=== PATIENT | female | born 1950 | race Caucasian/White ===

== ENCOUNTER → 2020-07-29 | Outpatient (CLI) | payer MEDICARE, OTHER ==
[~2020-07-29] MED LIST: ANASTROZOLE1 MG PO; IBUPROFEN800 MG PO; LISINOPRIL20 MG PO; PERCOCET 5/325 T1 EA PO; PREDNISONE 10 M10 MG PO
== END ==
LOC: US 13:51
DX: C50.211 Malignant neoplasm of upper-inner quadrant of right female breast (principal)
CPT/HCPCS: 76641-RT

== ENCOUNTER → 2020-09-14 | Outpatient (CLI) | payer MEDICARE, OTHER ==
[2020-09-14 11:29] LABS: BUN/CREATININE RATIO 16 (0-10)
== END ==
LOC: OPSV2 10:00
PROVIDERS: Surgery
DX: Z01.818 Encounter for other preprocedural examination (principal); R94.31 Abnormal electrocardiogram [ECG] [EKG]
CPT/HCPCS: 80048; 93005

== ENCOUNTER → 2020-09-15 | Day surgery (SDC) | payer MEDICARE, OTHER | END | disposition home or self-care (01) | LOC: OR 06:15 | DX: C50.911 Malignant neoplasm of unspecified site of right female breast (principal); Z20.822 Contact with and (suspected) exposure to COVID-19; I10 Essential (primary) hypertension; Z79.811 Long term (current) use of aromatase inhibitors; Z88.2 Allergy status to sulfonamides | CPT/HCPCS: 88341; 88342; A9520; J0690; J1100; J2001; J2250; J2405; J2704; J2765; J3010; J7030; J7120; Q9968 ==

== ENCOUNTER 2020-11-11 07:38 | Inpatient (IN) | payer MEDICARE, OTHER ==
[~2020-11-11] VITALS: Ht 162.6 cm; Wt 84.8 kg
[2020-11-11 09:18] LABS: HEMOGLOBIN 12.6 gm/dl (12.3-15.3); RED BLOOD COUNT 3.97 M/UL (4.00-5.10); WHITE BLOOD COUNT 9.7 K/UL (4.5-11.0)
[2020-11-11 09:59] LABS: BUN/CREATININE RATIO 28 (0-10)
[2020-11-11] MEDS ORDERED: ZANAFLEX 4 MG TA4 MG PO (15:49)
[2020-11-12 03:02] LABS: HEMOGLOBIN 11.6 gm/dl (12.3-15.3); RED BLOOD COUNT 3.67 M/UL (4.00-5.10)
[2020-11-12 03:22] LABS: WHITE BLOOD COUNT 6.9 K/UL (4.5-11.0)
[2020-11-12 03:27] LABS: BUN/CREATININE RATIO 26 (0-10)
[2020-11-12 08:36] LABS: ACINETOBACTER BAUMANNII Not Detected (Negative); CANDIDA ALBICANS Not Detected (Negative); CANDIDA KRUSEI Not Detected (Negative); CANDIDA TROPICALIS Not Detected (Negative); ENTEROCOCCUS Not Detected (Negative); ESCHERICHIA COLI Not Detected (Negative); HAEMOPHILUS INFLUENZAE Not Detected (Negative); KLEBSIELLA OXYTOCA Not Detected (Negative); KLEBSIELLA PNEUMONIAE Not Detected (Negative); KPC-CARBAPENEM-RESISTANCE GENE Not Detected (Negative); PROTEUS Not Detected (Negative); PSEUDOMONAS AERUGINOSA Not Detected (Negative); SERRATIA MARCESANS Not Detected (Negative); STAPHYLOCOCCUS AUREUS Not Detected (Negative); STREP AGALACTIAE (GROUP B) Not Detected (Negative); STREP PYOGENES (GROUP A) Not Detected (Negative); STREPTOCOCCUS Not Detected (Negative); mecA (METHICILLIN RESIST GENE Not Detected (Negative); vanA/B (VANCOMYCIN RESIST GENE Not Detected (Negative)
[2020-11-12 09:51] LABS: STAPHYLOCOCCUS DETECTED (Negative)
[2020-11-12 15:31] LABS: BUN/CREATININE RATIO 36 (0-10)
[2020-11-12 22:41] LABS: ADENOVIRUS F 40/41 Not Detected (Negative); ASTROVIRUS Not Detected (Negative); CAMPYLOBACTER Not Detected (Negative); CRYPTOSPORIDIUM Not Detected (Negative); E.COLI 0157 Not Detected (Negative); ENTAMOEBA HISTOLYTICA Not Detected (Negative); ENTEROAGGREGATIVE E.COLI (EAEC Not Detected (Negative); ENTEROPATHOGENIC E.COLI (EPEC) Not Detected (Negative); ENTEROTOXIGENIC E.COLI (ETEC) Not Detected (Negative); GIARDIA LAMBLIA Not Detected (Negative); NOROVIRUS GI/GII Not Detected (Negative); PLESIOMONAS SHIGELLOIDES Not Detected (Negative); ROTOVIRUS A Not Detected (Negative); SALMONELLA Not Detected (Negative); SAPOVIRUS Not Detected (Negative); SHIG/ENTEROINVAS.ECOLI (EIEC) Not Detected (Negative); SHIGA-LIK TOX.PRO.E.COLI (STEC Not Detected (Negative); VIBRIO Not Detected (Negative); VIBRIO CHOLERAE Not Detected (Negative); YERSINIA ENTEROCOLITICA Not Detected (Negative)
[2020-11-13 07:04] LABS: HEMOGLOBIN 11.3 gm/dl (12.3-15.3); RED BLOOD COUNT 3.74 M/UL (4.00-5.10)
[2020-11-13 07:09] LABS: WHITE BLOOD COUNT 15.7 K/UL (4.5-11.0)
[2020-11-13 08:22] LABS: BUN/CREATININE RATIO 39 (0-10)
[2020-11-13 08:24] LABS: CLOSTRIDIUM DIFFICILE TOX A/B DETECTED (Negative)
--- NOTE | 2020-11-14 02:44 | NUR ---
TYLENOL DOCUMENTED TWICE, ONLY 650MG GIVEN AND ONLY ONE TIME, ATEMPTED TO UNDO DOCUMENTATION BUT UNABLE TO
[2020-11-14 06:40] LABS: HEMOGLOBIN 11.6 gm/dl (12.3-15.3); RED BLOOD COUNT 3.65 M/UL (4.00-5.10)
[2020-11-14 06:41] LABS: WHITE BLOOD COUNT 10.9 K/UL (4.5-11.0)
[2020-11-14 07:18] LABS: BUN/CREATININE RATIO 36 (0-10)
[2020-11-15 06:47] LABS: HEMOGLOBIN 11.9 gm/dl (12.3-15.3); RED BLOOD COUNT 3.78 M/UL (4.00-5.10); WHITE BLOOD COUNT 9.5 K/UL (4.5-11.0)
[2020-11-15 07:18] LABS: BUN/CREATININE RATIO 29 (0-10)
[2020-11-16 07:35] LABS: BUN/CREATININE RATIO 27 (0-10)
--- NOTE | 2020-11-16 14:33 | NUR ---
patient's room air o2 sat 88%.
--- NOTE | 2020-11-16 23:56 | NUR ---
PT IS CURRENTLY ON 2.5L NC. PT'S O2 SATURATION WILL DROP INTO THE LOWER 80'S WHEN AMBULATING TO THE RESTROOM. PT'S O2 SATURATION WILL SLOWLY RETURN TO THE LOWER 90'S WHEN PT RETURNS TO BED AND SITS DOWN.
[2020-11-17 07:03] LABS: HEMOGLOBIN 11.8 gm/dl (12.3-15.3); RED BLOOD COUNT 3.91 M/UL (4.00-5.10); WHITE BLOOD COUNT 8.9 K/UL (4.5-11.0)
[2020-11-17 07:19] LABS: BUN/CREATININE RATIO 25 (0-10)
[2020-11-19 06:54] LABS: HEMOGLOBIN 12.4 gm/dl (12.3-15.3); RED BLOOD COUNT 3.9 M/UL (4.00-5.10)
[2020-11-19 07:05] LABS: WHITE BLOOD COUNT 6.6 K/UL (4.5-11.0)
[2020-11-19 07:19] LABS: BUN/CREATININE RATIO 22 (0-10)
[2020-11-21 05:56] LABS: HEMOGLOBIN 13.1 gm/dl (12.3-15.3); RED BLOOD COUNT 4.12 M/UL (4.00-5.10); WHITE BLOOD COUNT 7.1 K/UL (4.5-11.0)
[2020-11-21 06:29] LABS: BUN/CREATININE RATIO 28 (0-10)
[2020-11-21] MEDS ORDERED: BUTALB-ACETAMI1 EAC1 PO (08:47)
[2020-11-21] MEDS ORDERED: LOMOTIL 2.5-0.1 EACH PO (08:47)
[2020-11-21] MEDS ORDERED: ASPIRIN EC81 MG PO (08:47)
[2020-11-21] MEDS ORDERED: ACETAMINOPHEN325 MG PO (08:47)
[2020-11-21] MEDS ORDERED: VANCOMYCIN HCL125 MG PO (08:47)
--- NOTE | 2020-11-21 12:38 | NUR ---
REPORT CALLED TO SINA AT [facility] AT THIS TIME
== END 2020-11-21 13:30 | DRG 177 ==
LOC: ER1 07:38 → CDU 15:00 → M/S 15:00
PROVIDERS: Internal Medicine Infectious Disease; Physician Assistant; Physician Assistant Medical; ADMIT Internal Medicine
PROC: XW033E5 Introduction of Remdesivir Anti-infective into Peripheral Vein, Percutaneous Approach, New Technology Group 5 (ICD-10-PCS; principal; 2020-11-11)
PROC: 3E0333Z Introduction of Anti-inflammatory into Peripheral Vein, Percutaneous Approach (ICD-10-PCS; 2020-11-11)
PROC: 8E0ZXY6 Isolation (ICD-10-PCS; 2020-11-11)
DX: U07.1 COVID-19 (principal); J12.82 Pneumonia due to coronavirus disease 2019; J96.01 Acute respiratory failure with hypoxia; A04.72 Enterocolitis due to Clostridium difficile, not specified as recurrent; E87.6 Hypokalemia; I10 Essential (primary) hypertension; E66.9 Obesity, unspecified; T38.0X5A Adverse effect of glucocorticoids and synthetic analogues, initial encounter; Z85.3 Personal history of malignant neoplasm of breast; Z90.11 Acquired absence of right breast and nipple; Z90.49 Acquired absence of other specified parts of digestive tract; Z68.32 Body mass index [BMI] 32.0-32.9, adult
CPT/HCPCS: 36415; 36600; 71045; 80048; 80053; 81001; 82550; 82553; 82803; 82962; 83605; 83735; 84132; 84484; 85025; 86140; 87040; 87077; 87150; 87186; 87324; 87449; 87507; 93005; 94760; 96374; 96375; 97161; 97530-GP-CQ; 99285; J0456; J0696; J1100; J1650; J2405; J3475; J3480; J7030; J7120; Q9967; U0002